=== PATIENT | female | born 1990 | race Caucasian/White ===

== ENCOUNTER 2017-01-01 11:49 | Outpatient (CLI) | payer OTHER ==
[~2017-01-01] VITALS: Ht 177.8 cm; Wt 104.4 kg
[2017-01-01] MEDS ORDERED: PRENAT PO (12:04)
[2017-01-01 12:05] VITALS: Ht 177.8 cm; Wt 104.4 kg
[2017-01-01 12:06] VITALS: BP 110/62; PULSE 85; RESP 18
--- NOTE | 2017-01-01 13:16 | HP ---
Date/Time of Note Date/Time of Note DATE: 01/01/17 TIME: 13:14 OB - History Hx of Present Free Text/Dictation OB Triage Pt is a 26yo G1 at 33+0 who presents with c/o R ear pain x1 week, worsening in the last 2d. Denies recent illness, fevers or chills. Pt reports normal FM, denies VB, LOF or UCs. Estimated Due Date: Feb 19, 2017 : 1 Care: Good Care Obstetrical Complications: None Medical Complications: None OB Admission Exam Vital Signs Vital Signs Vital Signs Date Time Temp Pulse Resp B/P Pulse Ox O2 Delivery O2 Flow Rate FiO2 01/01/17 12:06 98.2 85 18 110/62 Room Air Physical Exam Heart Rate: 150's Accelerations: Accelerations Present Decelerations: No Decelerations Varibility: Moderate Contractions on Admission: None OB Assessment/Plan Other Assessment: 33wk IUP with reactive heart tracing R ear pain, r/o otitis media Other plan: FWB reassuring Will send pt to ED for evaluation/rule out otitis media PTL, PPROM and FKC precautions reviewed Questions answered to patient's satisfaction Pt to f/up for OB care with Dr. Silva on 01/04/17 as scheduled GISELL ALVAREZ MD Jan 01, 2017 13:16
[2017-01-01] MEDS ORDERED: NPH10OT RIGHT EAR (13:43)
[2017-01-01] MEDS ORDERED: ACET500C5 PO (13:43)
== END 2017-01-01 13:00 | disposition home or self-care (01) ==
LOC: OBT 11:49 → L-D 11:50 → OBT 13:00
PROVIDERS: ATTEND Obstetrics & Gynecology
DX: O26.893 Other specified pregnancy related conditions, third trimester (principal); H92.01 Otalgia, right ear; Z3A.33 33 weeks gestation of pregnancy
CPT/HCPCS: G0463

== ENCOUNTER 2017-01-01 13:24 | Emergency (ER) | payer OTHER ==
[~2017-01-01] VITALS: Ht 177.8 cm; Wt 104.0 kg
[~2017-01-01 13:24] MED LIST: PRENAT PO
[2017-01-01 13:30] VITALS: Ht 177.8 cm; Wt 104.0 kg
[2017-01-01] MEDS ORDERED: NPH10OT RIGHT EAR (13:43)
[2017-01-01] MEDS ORDERED: ACET500C5 PO (13:43)
--- NOTE | 2017-01-01 13:47 | ERD ---
ER Documentation Chief Complaint Date/Time DATE: 01/01/17 TIME: 13:46 Chief Complaint rt ear pain x 1 week , 32 weeks preg , cleared by ob HPI This 26-year-old female complains of right ear pain for last week. She may have had a tiny bit of discharge while using a Q-tip. She denies any cough, congestion, fevers. ROS All systems reviewed and are negative except as per history of present illness. Medications Home Meds Active Scripts Acetaminophen* (Tylophen*) 500 Mg Capsule, 1 CAP PO Q6H Y for PAIN AND OR ELEVATED TEMP, #15 CAP Prov:KRISTIN ELLISON MD 01/01/17 Neomycin/Polymyxin/Hydrocort* (Cortisporin* Otic) 10 Ml Susp, 4 DROP RIGHT EAR QID for 7 Days, EA Prov:KRISTIN ELLISON MD 01/01/17 Reported Medications Multivit/Min/Fol Ac/Iron/Pren* ( S*) 1 Tab Tab, 1 TAB PO DAILY, TAB 01/01/17 Allergies Allergies: Coded Allergies: No Known Allergy (Unverified , 01/01/17) PMhx/Soc Medical and Surgical Hx: pt denies Medical Hx, pt denies Surgical Hx Physical Exam Vitals Vital Signs Date Time Temp Pulse Resp B/P Pulse Ox O2 Delivery O2 Flow Rate FiO2 01/01/17 13:30 98.2 79 18 110/61 98 Physical Exam Const: [] Alert, [id number]. Head: Atraumatic Eyes: Normal Conjunctiva ENT: Normal External Ears, Nose and Mouth. There is some purulent exudate noted to be around the TM. There is minimal pain with passive range of motion. There is no visualized foreign body or mastoid tenderness. Neck: Full range of motion..~ No meningismus. Resp: Clear to auscultation bilaterally Cardio: Regular rate and rhythm, no murmurs Abd: Soft, non tender, non distended. Normal bowel sounds Skin: No petechiae or rashes Back: No midline or flank tenderness Ext: No cyanosis, or edema Neur: Awake and alert Psych: Normal Mood and Affect Procedures/MDM Patient was cleared by OB as she is in third trimester . Patient has signs of otitis externa. She will treated with Cortisporin and Tylenol further observation at home. The patient was stable with no new complaints during the ER course. Clinically, there is no current evidence to suggest meningitis, sepsis, acute abdomen, pneumonia, acute coronary syndrome, pulmonary embolism, or any other emergent condition appearing to require further evaluation or hospitalization. The patient should certainly return for any new or worsening symptoms per the aftercare instructions. They should otherwise follow-up with her primary care doctor for reevaluation this week. Departure Diagnosis: Primary Impression: Right ear pain Condition: Stable Patient Instructions: External Ear Infection (Adult) Additional Instructions: Recheck for new or worsening symptoms with primary care doctor. KRISTIN ELLISON MD Jan 01, 2017 13:47
== END 2017-01-01 13:48 | disposition home or self-care (01) ==
LOC: FTE 13:24
DX: O99.89 Other specified diseases and conditions complicating pregnancy, childbirth and the puerperium (principal); H92.01 Otalgia, right ear; Z3A.32 32 weeks gestation of pregnancy
CPT/HCPCS: 99283